=== PATIENT | male | born 1945 | race Caucasian/White ===

== ENCOUNTER 2016-07-20 11:07 | Day surgery (SDC) | payer MEDICARE, OTHER ==
[~2016-07-20] VITALS: Ht 167.6 cm; Wt 63.5 kg
[~2016-07-20 11:07] MED LIST: 0.9% Sodium Chloride 1,000 ML IV SCH; Sodium Chloride LOK Flush 10 mL Syringe IV PRN; fentaNYL-PF 50 mCg/mL 2 mL Inj IVPUSH PRN
[2016-07-20 12:47] VITALS: BP 127/78; PULSE 49; RESP 16; O2SAT 100
[2016-07-20 13:50] VITALS: BP 109/66; PULSE 45; RESP 16; O2SAT 100
--- NOTE | 2016-07-20 13:51 | PCM.ENDCOL ---
Colonoscopy Date of Service: Jul 20, 2016 Physician Dandy Bell MD Indication for Procedure Screening family history of colon cancer Post Procedure Dx & Findings: Polyp hemorrhoids diverticula Procedure Colonoscopy Prep adequate Withdrawal 9 minutes PROCEDURE IN DETAIL: After unremarkable rectal examination Olympus video colonoscope was inserted into patient's and a canal was advanced to cecum. Landmarks were identified including ileocecal valve and appendiceal orifice. The appendiceal orifice, there was a polyp right next to each other one was less than millimeter the other one was maybe a millimeter. We took a cold snare and both out at the same time. Also in the cecum, there was all less than 1 mm polyp which was resected completely using cold forceps. Diverticuli noted diffuse scattered mostly in the right side. The mucosa of the cecum, ascending, transverse, descending, sigmoid, rectal mucosa lined with whitish, pink, smooth, glistening, normal-appearing mucosa, normal fine branching, underlying vascularity, normal haustra. The patient tolerated procedure and was transported to observation area. In the rectum retroflexion was done which showed hemorrhoids and a canals inspect carefully the way out and hemorrhoids noted. Presedation Assessment Risks and Benefits Informed consent was obtained from the patient after all risks and benefits including but not limited to drug reaction, infection, pain, bleeding, perforation, as well as alternatives were discussed. Patient monitoring Continuous pulse oximetry, cardiac monitoring, blood pressure monitoring, IV access, and oxygen at 2L per nasal cannula. Periprocedural Fentanyl: Fentanyl 125mcg Incrementally Midazolam: Midazolam 5mg Incrementally Complications There were no periprocedural complications identified. Post Procedure Plan Post Procedure Recommendations 1. Restrict activities today. 2. Resume normal activities in the morning. 3. Resume medications. 4. Patient informed of normal post procedure side effects as bloating, drowsiness, blood streaking in the stool. 5. average risk CRCS. If colon polyps come back as: -Hyperplastic- can repeat colonoscopy in 10 years -Tubular adenoma- repeat colonoscopy in 5 years -Tubulovillous/villous adenoma- repeat colonoscopy in 3 years -If any dysplasia- return to clinic as soon as possible 6. Please don't hesitate to call me with any questions. Dandy Bell MD Jul 20, 2016 13:51
[2016-07-20 14:00] VITALS: BP 101/61; PULSE 42; RESP 14; O2SAT 100
[2016-07-20 14:06] VITALS: BP 108/70; PULSE 42; RESP 16; O2SAT 100
--- NOTE | 2016-07-22 11:31 | PATH ---
SURGICAL PATHOLOGY Attending Physician:Dandy Bell M.D. CASE STATUS: Signed Out PATIENT NAME: HAMMAD ISAAC PID: [id number] : 1945 DATE COLLECTED:07/20/2016 00:00 SPECIMEN: Colon, Biopsy CLINICAL HISTORY: CECAL POLYP X3 FINAL DIAGNOSIS: Cecal Polyp: Tubular adenoma involving two biopsy fragments. ICD10 D12.0 GROSS DESCRIPTION: The specimen is received in one formalin filled container labeled with the patient's name, sublabeled "cecal polyp x3" and consists of 3 tiny fragments of tissue which aggregate to 0.2 x 0.2 x 0.1 CM. The specimen is entirely submitted in one cassette. 07/21/2016 [facility] ICD-9 CODES: CPT CODES: 1: 84238 Electronically Signed Out Steve Pérez MD [facility] [address], [place] [address] Technical component performed at [facility], [address] [place] [address] Ave[address], [place], [address]
== END 2016-07-20 23:59 | disposition home or self-care (01) ==
LOC: END 11:07
PROVIDERS: ATTEND Internal Medicine
DX: Z12.11 Encounter for screening for malignant neoplasm of colon (principal); Z80.0 Family history of malignant neoplasm of digestive organs; D12.0 Benign neoplasm of cecum; K57.30 Diverticulosis of large intestine without perforation or abscess without bleeding; K64.9 Unspecified hemorrhoids
CPT/HCPCS: 45380; 45385; 88305; 99153; G0500; J2250; J3010; J7030